=== PATIENT | male | born 1945 | race Caucasian/White ===

== ENCOUNTER 2020-04-09 10:00 | Emergency (ER) | payer OTHER ==
[~2020-04-09] VITALS: Ht 170.1 cm; Wt 61.2 kg
[2020-04-09 10:47] LABS: BASO # 0.1 10*3/uL (0.0-0.1); BASO % 0.6 % (0.0-1.0); EOS # 0.4 10*3/uL (0.0-0.4); HEMATOCRIT 43.3 % (42.0-52.0); LYMPH # 1.2 10*3/uL (1.3-4.4); LYMPH % 13.3 % (27.0-41.0); MEAN CELL VOLUME 94.3 fl (80.0-94.0); MEAN CORPUSCULAR HGB 31.6 pg (27.0-31.0); MEAN CORPUSCULAR HGB CONC 33.5 g/dl (33.0-37.0); MEAN PLATELET VOLUME 9.5 fl (9.6-12.3); MONO # 0.6 10*3/uL (0.1-1.0); MONO % 6.6 % (3.0-9.0); NEUT # 6.8 10*3/uL (2.3-7.9); NEUT % 75.2 % (47.0-73.0); PLATELET COUNT AUTOMATED 215 10*3/uL (130-400); RED BLOOD COUNT 4.59 10*6/uL (4.50-5.90); RED CELL DISTRI WIDTH 11.9 % (0-14.5)
[2020-04-09 11:10] LABS: ALBUMIN 3.3 gm/dl (3.1-4.5); CREATININE 2.73 mg/dL (0.70-1.30); POTASSIUM 4.2 mmol/L (3.5-5.1); TOTAL PROTEIN 7.1 gm/dL (6.4-8.2); TROPONIN I 0.017 ng/ml (<0.045)
== END 2020-04-09 13:54 | disposition home or self-care (01) ==
LOC: ED 10:00
PROVIDERS: Nurse Practitioner Family
DX: R42 Dizziness and giddiness (principal); J02.9 Acute pharyngitis, unspecified; R09.89 Other specified symptoms and signs involving the circulatory and respiratory systems; R79.1 Abnormal coagulation profile; F17.210 Nicotine dependence, cigarettes, uncomplicated; Z88.0 Allergy status to penicillin; Z91.018 Allergy to other foods

== ENCOUNTER 2021-02-16 10:49 | Emergency (ER) | payer OTHER ==
[~2021-02-16] VITALS: Ht 170.1 cm; Wt 58.1 kg
[2021-02-16] MEDS ORDERED: HYDROCODONE-AC1 EAC1 PO (13:18)
== END 2021-02-16 13:23 | disposition home or self-care (01) ==
LOC: ED 10:49
DX: S22.42XA Multiple fractures of ribs, left side, initial encounter for closed fracture (principal); Z88.0 Allergy status to penicillin; Z91.018 Allergy to other foods; Z98.890 Other specified postprocedural states; W19.XXXA Unspecified fall, initial encounter; Y93.89 Activity, other specified; Y92.89 Other specified places as the place of occurrence of the external cause; Y99.8 Other external cause status

== ENCOUNTER 2021-03-27 12:25 | Inpatient (IN) | payer OTHER ==
[~2021-03-27] VITALS: Ht 170.1 cm; Wt 54.7 kg
[~2021-03-27 12:25] MED LIST: HYDROCODONE-AC1 EAC1 PO
[2021-03-27 12:45] VITALS: BP 162/61
[2021-03-27 13:28] LABS: BASO # 0.1 10*3/uL (0.0-0.1); BASO % 0.7 % (0.0-1.0); EOS # 0.3 10*3/uL (0.0-0.4); EOS % 3.5 % (1.0-4.0); HEMATOCRIT 45.7 % (42.0-52.0); LYMPH % 13.6 % (27.0-41.0); MEAN CELL VOLUME 95.2 fl (80.0-94.0); MEAN CORPUSCULAR HGB 32.3 pg (27.0-31.0); MEAN CORPUSCULAR HGB CONC 33.9 g/dl (33.0-37.0); MEAN PLATELET VOLUME 9.6 fl (9.6-12.3); MONO # 0.4 10*3/uL (0.1-1.0); MONO % 5.5 % (3.0-9.0); NEUT # 5.4 10*3/uL (2.3-7.9); NEUT % 76.4 % (47.0-73.0); PLATELET COUNT AUTOMATED 228 10*3/uL (130-400); RED CELL DISTRI WIDTH 12.8 % (0-14.5); WHITE BLOOD COUNT 7.1 10*3/uL (4.8-10.8)
[2021-03-27 13:44] LABS: ALBUMIN 3.8 gm/dl (3.1-4.5); CREATININE 2.79 mg/dL (0.70-1.30); POTASSIUM 4.5 mmol/L (3.5-5.1); TOTAL PROTEIN 7.5 gm/dL (6.4-8.2)
[2021-03-27 18:46] VITALS: BP 183/68
[2021-03-27 22:20] VITALS: BP 157/68
[2021-03-28] MEDS ORDERED: HYDRALAZINE HYD50 MG PO (00:08)
[2021-03-28] MEDS ORDERED: OMEPRAZOLE20 M2 PO (00:08)
[2021-03-28] MEDS ORDERED: NATURE'S BLEND F1 MG PO (00:08)
[2021-03-28] MEDS ORDERED: AMLODIPINE BESY10 MG PO (00:09)
[2021-03-28] MEDS ORDERED: CLONAZEPAM1 MG PO (00:09)
[2021-03-28] MEDS ORDERED: LOSARTAN POTASS25 M1 PO (00:11)
[2021-03-28] MEDS ORDERED: CYPROHEPTADINE H4 M1 PO (00:11)
[2021-03-28] MEDS ORDERED: ROSUVASTATIN CA20 MG PO (00:14)
[2021-03-28] MEDS ORDERED: VITAMIN B121000 MC1 PO (00:15)
[2021-03-28] MEDS ORDERED: ASPIRIN ADULT L81 M1 PO (00:15)
[2021-03-28 06:09] LABS: ALBUMIN 3.1 gm/dl (3.1-4.5); CREATININE 2.7 mg/dL (0.70-1.30); POTASSIUM 3.9 mmol/L (3.5-5.1)
[2021-03-28 06:17] LABS: BASO % 0.7 % (0.0-1.0); EOS # 0.3 10*3/uL (0.0-0.4); EOS % 5.1 % (1.0-4.0); HEMATOCRIT 39.6 % (42.0-52.0); LYMPH # 1.2 10*3/uL (1.3-4.4); LYMPH % 20.1 % (27.0-41.0); MEAN CELL VOLUME 96.1 fl (80.0-94.0); MEAN CORPUSCULAR HGB CONC 33.3 g/dl (33.0-37.0); MEAN PLATELET VOLUME 10.2 fl (9.6-12.3); MONO # 0.5 10*3/uL (0.1-1.0); MONO % 9.1 % (3.0-9.0); NEUT # 3.8 10*3/uL (2.3-7.9); NEUT % 64.7 % (47.0-73.0); PLATELET COUNT AUTOMATED 192 10*3/uL (130-400); RED BLOOD COUNT 4.12 10*6/uL (4.50-5.90); RED CELL DISTRI WIDTH 12.9 % (0-14.5); WHITE BLOOD COUNT 5.8 10*3/uL (4.8-10.8)
[2021-03-28 06:19] LABS: THYROID STIM HORMONE (HS) 3.07 uIU/ml (0.358-4.75); TOTAL PROTEIN 6.1 gm/dL (6.4-8.2)
[2021-03-28 06:40] VITALS: BP 175/63
[2021-03-28 06:56] LABS: VITAMIN D, 25-HYDROXY 63.8 ng/mL (30-100)
[2021-03-28 07:15] VITALS: BP 152/68
[2021-03-28] MEDS ORDERED: LANTUS SOL100 UNIT/1 SC ×2 (07:59→22:55)
[2021-03-28] MEDS ORDERED: NOVOLOG FL100 UNIT/2 SC ×4 (08:02→08:05)
[2021-03-28 12:20] VITALS: BP 179/51
[2021-03-28 16:00] VITALS: BP 188/55
[2021-03-28 20:00] VITALS: BP 169/59
[2021-03-29] VITALS: BP 146/77
[2021-03-29 05:59] LABS: BASO % 0.6 % (0.0-1.0); EOS # 0.3 10*3/uL (0.0-0.4); EOS % 4.7 % (1.0-4.0); HEMATOCRIT 37.6 % (42.0-52.0); LYMPH # 1.6 10*3/uL (1.3-4.4); LYMPH % 22.2 % (27.0-41.0); MEAN CELL VOLUME 95.9 fl (80.0-94.0); MEAN CORPUSCULAR HGB 31.9 pg (27.0-31.0); MEAN CORPUSCULAR HGB CONC 33.2 g/dl (33.0-37.0); MEAN PLATELET VOLUME 10.1 fl (9.6-12.3); MONO # 0.7 10*3/uL (0.1-1.0); MONO % 9.7 % (3.0-9.0); NEUT # 4.5 10*3/uL (2.3-7.9); NEUT % 62.5 % (47.0-73.0); PLATELET COUNT AUTOMATED 187 10*3/uL (130-400); RED BLOOD COUNT 3.92 10*6/uL (4.50-5.90); RED CELL DISTRI WIDTH 12.8 % (0-14.5); WHITE BLOOD COUNT 7.2 10*3/uL (4.8-10.8)
[2021-03-29 06:18] LABS: CREATININE 2.58 mg/dL (0.70-1.30); POTASSIUM 3.9 mmol/L (3.5-5.1); TOTAL PROTEIN 5.9 gm/dL (6.4-8.2)
[2021-03-29 08:00] VITALS: BP 152/56
[2021-03-29 12:00] VITALS: BP 150/60
[2021-03-29 17:25] VITALS: BP 140/60
[2021-03-29 20:00] VITALS: BP 165/59
[2021-03-30] VITALS: BP 146/59
[2021-03-30 05:53] VITALS: BP 130/60
[2021-03-30 08:00] VITALS: BP 135/51
[2021-03-30 12:00] VITALS: BP 148/56
[2021-03-30 16:00] VITALS: BP 129/59
[2021-03-30 20:00] VITALS: BP 164/59
[2021-03-31] VITALS: BP 174/57
[2021-03-31 06:52] LABS: CREATININE 2.52 mg/dL (0.70-1.30); POTASSIUM 4.1 mmol/L (3.5-5.1)
[2021-03-31 07:00] VITALS: BP 164/60
[2021-03-31 08:00] VITALS: BP 170/50
[2021-03-31 12:00] VITALS: BP 179/59
[2021-03-31] MEDS ORDERED: ATORVASTATIN CA80 M1 PO (13:44)
== END 2021-03-31 16:09 | disposition home health service (06) | DRG 64 ==
LOC: ED 12:25 → 5E 14:22 → EDHOLD 14:22 → 5E 03-28 11:55
PROVIDERS: Internal Medicine; Registered Nurse; Student in an Organized Health Care Education/Training Program; ADMIT Internal Medicine; ATTEND Internal Medicine
DX: I63.89 Other cerebral infarction (principal); N17.0 Acute kidney failure with tubular necrosis; N18.9 Chronic kidney disease, unspecified; K21.9 Gastro-esophageal reflux disease without esophagitis; E11.65 Type 2 diabetes mellitus with hyperglycemia; I12.9 Hypertensive chronic kidney disease with stage 1 through stage 4 chronic kidney disease, or unspecified chronic kidney disease; R81 Glycosuria; E11.22 Type 2 diabetes mellitus with diabetic chronic kidney disease; Z88.0 Allergy status to penicillin; Z88.8 Allergy status to other drugs, medicaments and biological substances; Z79.1 Long term (current) use of non-steroidal anti-inflammatories (NSAID); Z79.899 Other long term (current) drug therapy; Z79.82 Long term (current) use of aspirin